=== PATIENT | male | born 1970 | race Caucasian/White ===

== ENCOUNTER 2017-08-13 18:01 | Emergency (ER) | payer OTHER, MEDICAID ==
[~2017-08-13] VITALS: Ht 180.3 cm; Wt 75.0 kg
[~2017-08-13 18:01] MED LIST: AMLO1TAB PO; CLOM50CA PO; DIAZ10TA PO; LINA145C PO; SERO200T PO; TRAZ300T2 PO
[2017-08-13 18:06] VITALS: BP 128/74; PULSE 93; RESP 20; TEMP 98.7; O2SAT 97
[2017-08-13 18:10] VITALS: O2SAT 98
[2017-08-13] MEDS ORDERED: SODIUM CHLOR 0.9% 1000 ML INJ 1,000 ML IV SCH (18:12)
[2017-08-13] MEDS ORDERED: MORPHINE SULFATE 4 MG/ML INJ IV PUSH ONE ×2 (18:15→18:45)
[2017-08-13] MEDS ORDERED: ONDANSETRON HCL 4 MG/2 ML VIAL IV PUSH ONE (18:15)
[2017-08-13] MEDS ORDERED: SODIUM CHLORIDE 0.9% FLUSH 10 ML FLUSH IVF PRN (18:15)
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
[2017-08-13] MEDS ORDERED: ALPR.5 PO (18:29)
[2017-08-13] MEDS ORDERED: DIAZ2 PO (18:29)
[2017-08-13 18:48] LABS: AUTOMATED NEUTROPHIL # 3.8 TH/MM3 (1.8-7.7); BASOPHIL % 0.6 % (0.0-2.0); EOSINOPHIL # 0.1 TH/MM3 (0-0.4); EOSINOPHIL % 2.1 % (0.0-4.0); HEMATOCRIT 40.8 % (39.0-51.0); HEMO FLAGS DIFF FINAL; LYMPH % 29.7 % (9.0-44.0); LYMPHOCYTE # 1.9 TH/MM3 (1.0-4.8); MEAN CELL VOLUME 91.7 FL (80.0-100.0); MEAN CORPUSCULAR HEMOGLOBIN 32.4 PG (27.0-34.0); MEAN CORPUSCULAR HGB CONC 35.4 % (32.0-36.0); MONO % 6.9 % (0.0-8.0); NEUT % 60.7 % (16.0-70.0); PLATELET COUNT 197 TH/MM3 (150-450); RED BLOOD COUNT 4.45 MIL/MM3 (4.50-5.90); RED CELL DISTRIBUTION WIDTH 12.7 % (11.6-17.2); WHITE BLOOD COUNT 6.3 TH/MM3 (4.0-11.0)
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
[2017-08-13 19:18] LABS: BICARBONATE 29.9 MEQ/L (21.0-32.0)
[2017-08-13] MEDS ORDERED: IOHEXOL 350 MG/ML 10 ML VIAL (for RAD DIAG) IVCONTRAST ONE (19:23)
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
[2017-08-13] MEDS ORDERED: KETOROLAC TROMETHAMINE 30 MG/ML (IVP) VIAL IV PUSH ONE (21:15)
[2017-08-13] MEDS ORDERED: PERC5TAB12 PO (21:21)
[2017-08-13] MEDS ORDERED: IBUP-232 PO (21:21)
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
[2017-08-13 21:26] VITALS: BP 139/92
== END 2017-08-13 22:00 | disposition home or self-care (01) ==
LOC: NEPE 18:01
DX: S40.012A Contusion of left shoulder, initial encounter (principal); S20.222A Contusion of left back wall of thorax, initial encounter; S10.93XA Contusion of unspecified part of neck, initial encounter; R55 Syncope and collapse; M41.9 Scoliosis, unspecified; M48.02 Spinal stenosis, cervical region; G10 Huntington's disease; J98.11 Atelectasis; V28.4XXA Motorcycle driver injured in noncollision transport accident in traffic accident, initial encounter
CPT/HCPCS: 70450; 71010; 71260; 72125; 72128; 72131; 74177; 80048; 85025; 86850; 86900; 86901; 96361; 96374; 96375; 99285; J1885; J2270; J2405; J7030; Q9967

== ENCOUNTER 2017-08-14 03:12 | Emergency (ER) | payer MEDICAID, OTHER ==
[~2017-08-14] VITALS: Ht 180.3 cm; Wt 87.4 kg
[~2017-08-14 03:12] MED LIST changes: +ALPR.5 PO; +DIAZ2 PO; +IBUP-232 PO; +PERC5TAB12 PO
[2017-08-14 03:16] VITALS: BP 121/77; PULSE 90; RESP 18; TEMP 97.4; O2SAT 99
[2017-08-14 03:22] VITALS: BP 121/77; PULSE 90; RESP 18; TEMP 97.4; O2SAT 99
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
[2017-08-14 03:48] LABS: BLOOD, URINE NEG (NEG); GLUCOSE,URINE NEG (NEG); KETONE, URINE NEG (NEG); NITRITE,URINE NEG (NEG)
[2017-08-14 03:58] LABS: URINE COLOR YELLOW (YELLW/STRAW)
[2017-08-14 03:59] LABS: COMMENT (UR) CULT NOT INDICATED; CULTURE IF INDICATED CULT NOT INDICATED; RBC, URINE 0-2 /hpf (0-3); SQUAMOUS EPITHELIAL CELL URINE 0-5 /hpf (0-5); WBC, URINE 0-2 /hpf (0-5)
[2017-08-14 04:34] VITALS: BP 145/86; PULSE 75; RESP 18; O2SAT 98
== END 2017-08-14 04:30 | disposition home or self-care (01) ==
LOC: PHED 03:12
DX: R33.9 Retention of urine, unspecified (principal); S30.812D Abrasion of penis, subsequent encounter; I10 Essential (primary) hypertension; F41.8 Other specified anxiety disorders; Z87.438 Personal history of other diseases of male genital organs; Z87.39 Personal history of other diseases of the musculoskeletal system and connective tissue; Z86.69 Personal history of other diseases of the nervous system and sense organs; Z87.2 Personal history of diseases of the skin and subcutaneous tissue; V29.60 Unspecified motorcycle rider injured in collision with unspecified motor vehicles in traffic accident
CPT/HCPCS: 51702; 81001

== ENCOUNTER 2017-08-23 09:35 | Inpatient (IN) | payer OTHER, MEDICARE ==
[~2017-08-23] VITALS: Ht 180.3 cm; Wt 80.9 kg
[2017-08-23] VITALS (8 sets, daily range): BP systolic 119–159; BP diastolic 62–78; PULSE 91–124; RESP 14–20; TEMP 98.6–102.3; O2SAT 95–99
[2017-08-23] MEDS ORDERED: VANCOMYCIN INJ 1,200 MG in SODIUM CHLOR 0.9% 250 ML INJ 250 ML IV STA (09:59)
[2017-08-23] MEDS ORDERED: PIPERACIL-TAZO 4.5 GM PREMIX 100 ML IV STA (09:59)
[2017-08-23] MEDS ORDERED: ONDANSETRON HCL 4 MG/2 ML VIAL IV PUSH ONE (10:00)
[2017-08-23] MEDS ORDERED: SODIUM CHLOR 0.9% 1000 ML INJ 1,000 ML IV ONE ×2 (10:00→11:00)
[2017-08-23] MEDS ORDERED: HYDROmorphone HCL PF 2 MG/ML VIAL IV PUSH ONE ×2 (10:00→12:00)
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
[2017-08-23 10:40] LABS: AUTOMATED NEUTROPHIL # 18.8 TH/MM3 (1.8-7.7); BASOPHIL % 0.2 % (0.0-2.0); EOSINOPHIL # 0.1 TH/MM3 (0-0.4); EOSINOPHIL % 0.3 % (0.0-4.0); HEMATOCRIT 39.8 % (39.0-51.0); LYMPH % 3.4 % (9.0-44.0); LYMPHOCYTE # 0.7 TH/MM3 (1.0-4.8); MEAN CORPUSCULAR HGB CONC 34.8 % (32.0-36.0); MONO % 5.1 % (0.0-8.0); PLATELET COUNT 229 TH/MM3 (150-450); RED BLOOD COUNT 4.47 MIL/MM3 (4.50-5.90); RED CELL DISTRIBUTION WIDTH 12.1 % (11.6-17.2); WHITE BLOOD COUNT 20.7 TH/MM3 (4.0-11.0)
[2017-08-23 10:47] LABS: CHLORIDE 103 MEQ/L (98-107); POTASSIUM 4.2 MEQ/L (3.5-5.1); SODIUM (NA) 139 MEQ/L (136-145)
[2017-08-23 10:51] LABS: ANION GAP 8 MEQ/L (5-15); BICARBONATE 28.4 MEQ/L (21.0-32.0)
[2017-08-23 10:52] LABS: BLOOD UREA NITROGEN 13 MG/DL (7-18)
[2017-08-23 10:54] LABS: ALT (GPT) 83 U/L (12-78); AST (GOT) 44 U/L (15-37); GLOMERULAR FILTRATION RATE 84 ML/MIN (>89); HEMO FLAGS DIFF FINAL
[2017-08-23 10:56] LABS: TOTAL BILIRUBIN ADULT 0.5 MG/DL (0.2-1.0)
[2017-08-23 10:57] LABS: ALKALINE PHOSPHATASE 76 U/L (45-117)
[2017-08-23 11:22] LABS: BLOOD, URINE LARGE (NEG); GLUCOSE,URINE NEG (NEG); KETONE, URINE NEG (NEG); NITRITE,URINE NEG (NEG); PH, URINE 5.5 (5.0-8.5)
--- NOTE | 2017-08-23 11:26 | RADRPT ---
EXAM DATE/TIME: 08/23/2017 10:27 [place] COMPARISON: No previous studies available for comparison. INDICATIONS : Left testicle swelling and pain. MEDICAL HISTORY : Hypertension. Jaiden's chorea. diabetes. SURGICAL HISTORY : Appendectomy. Ulnar nerve transposition. Right ankle surgery. TURP. ENCOUNTER: Initial ACUITY: 1 day PAIN SCORE: 5/10 LOCATION: Bilateral scrotum. MEASUREMENTS: RIGHT TESTICLE: 4.7 x 3.7 x 2.3cm LEFT TESTICLE: 4.2 x 3.5 x 2.8cm FINDINGS: RIGHT TESTICLE: Homogeneous echotexture without intra or extratesticular mass. Blood flow is symmetric and within no rmal limits. No hydrocele or varicocele. Epididymis is within normal limits. LEFT TESTICLE: Symmetrical flow in left testicle. Left epididymis is prominent and hypervascular. Small varicocele is noted. SCROTUM: Within normal limits. CONCLUSION: Probable epididymitis. Symmetrical flow no hydrocele. Small varicocele on left. Luc Fraga MD FACR on August 23, 2017 at 11:23 Board Certified Radiologist. This report was verified electronically.
[2017-08-23 11:33] LABS: URINE COLOR STRAW (YELLW/STRAW)
[2017-08-23 11:35] LABS: BACTERIA, URINE OCC /hpf; COMMENT (UR) CULTURE INDICATED; CULTURE IF INDICATED CULTURE INDICATED; METHOD OF COLLECTION CATH; SQUAMOUS EPITHELIAL CELL URINE 0-1 /hpf (0-5)
[2017-08-23] MEDS ORDERED: VANCOMYCIN INJ 1,200 MG in SODIUM CHLOR 0.9% 250 ML INJ 250 ML IV ONE (12:00)
[2017-08-23] MEDS ORDERED: DEXTROSE 50% IN WATER 50 ML VIAL(D50) IV PUSH PRN (12:15)
[2017-08-23] MEDS ORDERED: GLUCAGON 1 MG/ML VIAL OTHER PRN (12:15)
[2017-08-23] MEDS ORDERED: SODIUM CHLORIDE 0.9% FLUSH 10 ML FLUSH IV FLUSH PRN (12:15)
[2017-08-23] MEDS ORDERED: NALOXONE HCL 0.4 MG/ML AMP IV PUSH PRN (12:15)
[2017-08-23] MEDS ORDERED: MIDAZOLAM HCL 5 MG/5 ML VIAL IV PUSH ONE (12:15)
[2017-08-23] MEDS: SODIUM CHLOR 0.9% 1000 ML INJ 1,000 ML IV SCH ×2 (15:07→23:34)
--- NOTE | 2017-08-23 15:30 | HHI.HP ---
HPI Service [facility] Primary Care Physician Simón Valle MD Admission Diagnosis UTI, EPIDIDYMITIS Diagnoses: (1) Urinary retention (2) Epididymitis Chief Complaint: Left flank pain and left left testicular pain/swelling Travel History International Travel<30 Days: No Contact w/Intl Traveler <30 Da: No Traveled to Known Affected Are: No Sepsis Criteria SIRS Criteria (2 or more): Heart rate over 90, WBC > 69254, < 4000 or > 10% bands Sepsis Criteria (SIRS+source): Infect source susp/known History of Present Illness Written by Heydi Anthony, acting as scribe for Dr. Garcia on 08/23/17 at 15:04. Mr. Dutton is a 47-year-old male patient with a known medical history of hypertension, depression, [place]'s disease and chronic urination problems who presented to the ED with complaints of left sided flank pain and left testicular pain and swelling. Patient states that last evening he suddenly noticed his left testicle swollen and reports subjective fever, chills and severe left flank pain. Patient did present to the hospital on 08/14/2017 for urinary retention and at the time needed to be straight catheterized. Patient states since that time he has been voiding normally with no issues up until last evening. Does admit to dysuria. He also has underwent a TURP in the past and was following with Dr. Keita but has not seen him for over a year. Denies any recent chest pain, headache, sore throat, shortness of breath, nausea, vomiting, diarrhea. Review of Systems Constitutional: COMPLAINS OF: Fever, Chills Eyes: DENIES: Blurred vision, Diplopia Ears, nose, mouth, throat: DENIES: Throat pain Respiratory: DENIES: Cough, Shortness of breath Gastrointestinal: DENIES: Abdominal pain Genitourinary: COMPLAINS OF: Testicular Pain, Testicular Swelling Musculoskeletal: DENIES: Joint pain Hematologic/lymphatic: DENIES: Bruising Psychiatric: DENIES: Anxiety Except as stated in HPI: all other systems reviewed are Neg Past Family Social History Past Medical History Anxiety Depression Hypertension Enlarged prostate Huntingtons disease Psoriasis Past Surgical History Appendectomy TRUP Left ulnar nerve transplant Reported Medications Reported Meds & Active Scripts Active Ibuprofen 600 Mg Tab 600 Mg PO Q6H PRN Reported Trazodone (Trazodone HCl) 300 Mg Tab 300 Mg PO HS Linzess (Linaclotide) 145 Mcg Cap 145 Mcg PO DAILY Seroquel (Quetiapine Fumarate) 200 Mg Tab 200 Mg PO DAILY Diazepam 10 Mg Tab 10 Mg PO TID Amlodipine-Atorvastatin 5-40 Mg Tab 1 Tab PO DAILY Clomipramine (Clomipramine HCl) 50 Mg Cap 200 Mg PO DAILY Allergies: Coded Allergies: No Known Allergies (Verified Allergy, Unknown, 08/13/17) Active Ordered Medications Current Medications Medications (Trade) Dose Ordered Sig/Vivi Route Start Time Stop Time Status Last Admin Sodium Chloride 1,000 ml @ 100 mls/hr Q10H IV 08/23/17 12:15 (NS Flush) 2 ml UNSCH PRN IV FLUSH 08/23/17 12:15 (NS Flush) 2 ml BID IV FLUSH 08/23/17 21:00 (Tylenol) 650 mg Q4HR PRN PO 08/23/17 12:30 (Zofran Inj) 4 mg Q6H PRN IVP 08/23/17 16:00 (Narcan Inj) 0.4 mg UNSCH PRN IV PUSH 08/23/17 12:15 (Senokot) 17.2 mg Q12HR PRN PO 08/23/17 21:00 (D50w (Vial) Inj) 50 ml UNSCH PRN IV PUSH 08/23/17 12:15 (Glucagon Inj) 1 mg UNSCH PRN OTHER 08/23/17 12:15 (NovoLOG SUPPLEMENTAL SCALE) 1 ACHS SLIDING SCALE SQ 08/23/17 17:00 Family History Maternal medical history of Jaiden's disease Paternal medical history significant for lung CA. Social History Admits to smoking 1/2 ppd cigarettes per day for 34 years. Denies any alcohol use. Denies any illicit drug use. Physical Exam Vital Signs Vital Signs Date Time Temp Pulse Resp B/P (MAP) Pulse Ox O2 Delivery O2 Flow Rate FiO2 08/23/17 14:30 96 17 119/74 (89) 98 08/23/17 11:59 91 18 122/71 (88) 98 Room Air 08/23/17 11:18 17 08/23/17 10:50 100 18 121/71 (88) 99 Room Air 08/23/17 10:33 96 Room Air 08/23/17 10:33 Room Air 08/23/17 09:43 98.6 102 14 135/62 (86) 97 Room Air Physical Exam GENERAL: This is a well-nourished, well-developed patient, lying in bed with apparent pain and swelling in left testicle. SKIN: No rashes, ecchymoses or lesions. Warm and dry. HEENT: Atraumatic. Normocephalic. Pupils equal round and reactive. Extraocular motions intact. No scleral icterus. No injection or drainage. Nose without bleeding. Airway patent. NECK: Trachea midline. No JVD. Supple. CARDIOVASCULAR: Regular rate and rhythm without murmurs, gallops, or rubs. RESPIRATORY: Clear to auscultation. Breath sounds equal bilaterally. No wheezes , rales, or rhonchi. GASTROINTESTINAL: Abdomen soft, non-tender, nondistended. No guarding. : Left testicular swelling. Left flank pain. MUSCULOSKELETAL: Extremities without clubbing, cyanosis, or edema. No joint tenderness, effusion, or edema noted. NEUROLOGICAL: Awake and alert. Cranial nerves II through XII intact. Motor and sensory grossly within normal limits. Five out of 5 muscle strength in all muscle groups. Normal speech. Laboratory Laboratory Tests Test 08/23/17 10:10 08/23/17 10:50 White Blood Count 20.7 Red Blood Count 4.47 Hemoglobin 13.9 Hematocrit 39.8 Mean Corpuscular Volume 89.0 Mean Corpuscular Hemoglobin 31.0 Mean Corpuscular Hemoglobin Concent 34.8 Red Cell Distribution Width 12.1 Platelet Count 229 Mean Platelet Volume 7.7 Neutrophils (%) (Auto) 91.0 Lymphocytes (%) (Auto) 3.4 Monocytes (%) (Auto) 5.1 Eosinophils (%) (Auto) 0.3 Basophils (%) (Auto) 0.2 Neutrophils # (Auto) 18.8 Lymphocytes # (Auto) 0.7 Monocytes # (Auto) 1.1 Eosinophils # (Auto) 0.1 Basophils # (Auto) 0.0 CBC Comment DIFF FINAL Differential Comment Blood Urea Nitrogen 13 Creatinine 0.96 Random Glucose 106 Total Protein 7.1 Albumin 3.5 Calcium Level 8.5 Alkaline Phosphatase 76 Aspartate Amino Transf (AST/SGOT) 44 Alanine Aminotransferase (ALT/SGPT) 83 Total Bilirubin 0.5 Sodium Level 139 Potassium Level 4.2 Chloride Level 103 Carbon Dioxide Level 28.4 Anion Gap 8 Estimat Glomerular Filtration Rate 84 Lactic Acid Level 1.0 Urine Collection Type CATH Urine Color STRAW Urine Turbidity CLEAR Urine pH 5.5 Urine Specific [place] 1.005 Urine Protein NEG Urine Glucose (UA) NEG Urine Ketones NEG Urine Occult Blood LARGE Urine Nitrite NEG Urine Bilirubin NEG Urine Leukocyte Esterase SMALL Urine WBC 6-8 Urine WBC Clumps FEW Urine Squamous Epithelial Cells 0-1 Urine Bacteria OCC Microscopic Urinalysis Comment CULTURE INDICATED Date/Time Source Procedure Growth Status 08/23/17 10:05 Blood Peripheral Aerobic Blood Culture Pending Received 08/23/17 10:05 Blood Peripheral Anaerobic Blood Culture Pending Received 08/23/17 10:50 Urine Catheterized Urine Urine Culture Pending Received Result Diagram: 08/23/17 1010 08/23/17 1010 Imaging Last Impressions Scrotum Ultrasound 08/23/17 1004 Signed Impressions: Service Date/Time: Wednesday, August 23, 2017 10:27 - CONCLUSION: Probable epididymitis. Symmetrical flow no hydrocele. Small varicocele on left. Luc Fraga MD FACR Septic Shock Reassessment Septic shock perfusion: reassessment completed Caprini VTE Risk Assessment Caprini VTE Risk Assessment: No/Low Risk (score <= 1) Caprini Risk Assessment Model Point Value = 1 Point Value = 2 Point Value = 3 Point Value = 5 Age 41-60 Minor surgery BMI > 25 kg/m2 Swollen legs Varicose veins or History of unexplained or recurrent spontaneous Oral contraceptives or hormone replacement Sepsis (< 1 month) Serious lung disease, including pneumonia (< 1 month) Abnormal pulmonary function Acute myocardial infarction Congestive heart failure (< 1 month) History of inflammatory bowel disease Medical patient at bed rest Age 61-74 Arthroscopic surgery Major open surgery (> 45 min) Laparoscopic surgery (> 45 min) Malignancy Confined to bed (> 72 hours) Immobilizing plaster cast Central venous access Age >= 75 History of VTE Family history of VTE Factor V Leiden Prothrombin [id number] Lupus anticoagulant Anticardiolipin antibodies Elevated serum homocysteine Heparin-induced thrombocytopenia Other congenital or acquired thrombophilia Stroke (< 1 month) Elective arthroplasty Hip, pelvis, or leg fracture Acute spinal cord injury (< 1 month) Prophylaxis Regimen Total Risk Factor Score Risk Level Prophylaxis Regimen 0-1 Low Early ambulation 2 Moderate Order ONE of the following: *Sequential Compression Device (SCD) *Heparin 5000 units SQ BID 3-4 Higher Order ONE of the following medications: *Heparin 5000 units SQ TID *Enoxaparin/Lovenox 40 mg SQ daily (WT < 150 kg, CrCl > 30 mL/min) *Enoxaparin/Lovenox 30 mg SQ daily (WT < 150 kg, CrCl > 10-29 mL/min) *Enoxaparin/Lovenox 30 mg SQ BID (WT < 150 kg, CrCl > 30 mL/min) AND/OR *Sequential Compression Device (SCD) 5 or more Highest Order ONE of the following medications: *Heparin 5000 units SQ TID (Preferred with Epidurals) *Enoxaparin/Lovenox 40 mg SQ daily (WT < 150 kg, CrCl > 30 mL/min) *Enoxaparin/Lovenox 30 mg SQ daily (WT < 150 kg, CrCl > 10-29 mL/min) *Enoxaparin/Lovenox 30 mg SQ BID (WT < 150 kg, CrCl > 30 mL/min) AND *Sequential Compression Device (SCD) Assessment and Plan Problem List: (1) Sepsis ICD Code: A41.9 - Sepsis, unspecified organism Plan: Suspect secondary to UTI with presence of epididymitis. Meets sepsis criteria with leukocytosis with bandemia, tachycardia source urine. Lactic acid 1.1. Ua reviewed showing presence of WBC. Await culture. Started on Rocephin IV. Consult placed to urology, appreciate further recommendations and treatment. Supportive care. Control pain with IV narcotics. DVT Prophylaxis: SCDs. Physician Certification 2 Midnight Certification Type: Admission for Inpatient Services Order for Inpatient Services The services are ordered in accordance with Medicare regulations or non- Medicare payer requirements, as applicable. In the case of services not specified as inpatient-only, they are appropriately provided as inpatient services in accordance with the 2-midnight benchmark. Estimated LOS (days): 3 3 days is the estimated time the patient will need to remain in the hospital, assuming treatment plan goals are met and no additional complications. Post-Hospital Plan: Home Medical Decision Making Impression and Plan This note was transcribed by scribnorah [[email or web address]]. I, Dr. Ca Garcia personally performed the history, physical exam, and medical decision making; and confirmed the accuracy of the information in the transcribed note. seen in room, complains of pain; request pain meds; needs younger for retention Authenticated by Dr. Ca Garcia on 08/23/17 at 15:36. Heydi Anthony Aug 23, 2017 15:30 Ca Garcia MD Aug 23, 2017 15:38
[2017-08-23] MEDS ORDERED: cefTRIAXone INJ 1,000 MG in SODIUM CHLORIDE 0.9% INJ 100 ML IV SCH (15:45)
[2017-08-23] MEDS ORDERED: ONDANSETRON HCL 4 MG/2 ML VIAL IVP PRN (16:00)
[2017-08-23] MEDS: HYDROmorphone HCL PF 2 MG/ML VIAL IV PUSH PRN ×2 (16:05→20:19)
[2017-08-23] MEDS: cefTRIAXone INJ 1,000 MG in SODIUM CHLORIDE 0.9% INJ 100 ML IV SCH (16:05)
[2017-08-23] MEDS: TAMSULOSIN HCL 0.4 MG CAP PO SCH (16:51)
[2017-08-23] MEDS: ACETAMINOPHEN 325 MG TAB PO PRN ×2 (16:51→20:19)
[2017-08-23] MEDS ORDERED: INSULIN ASPART SUPPLEMENTAL SCALE SQ SCH (17:00)
[2017-08-23] MEDS: IBUPROFEN 400 MG TAB PO SCH ×2 (17:42→23:35)
[2017-08-23] MEDS: KETOROLAC TROMETHAMINE 30 MG/ML (IVP) VIAL IV PUSH SCH ×2 (17:42→23:34)
--- NOTE | 2017-08-23 19:59 | PD.CONS ---
[facility] Service Urology Consult Requested By Primary Care Physician Simón Valle MD Diagnosis: (1) Sepsis ICD Code: A41.9 - Sepsis, unspecified organism Past Family Social History Allergies: Coded Allergies: No Known Allergies (Verified Allergy, Unknown, 08/13/17) Physical Exam Vital Signs Date Time Temp Pulse Resp B/P (MAP) Pulse Ox O2 Delivery O2 Flow Rate FiO2 08/23/17 18:12 100.4 08/23/17 18:10 102.3 124 16 159/78 (105) 95 08/23/17 17:23 Nasal Cannula 2.00 08/23/17 14:30 96 17 119/74 (89) 98 08/23/17 12:29 18 08/23/17 11:59 91 18 122/71 (88) 98 Room Air 08/23/17 11:18 17 08/23/17 10:50 100 18 121/71 (88) 99 Room Air 08/23/17 10:33 96 Room Air 08/23/17 10:33 Room Air 08/23/17 09:43 98.6 102 14 135/62 (86) 97 Room Air Physical Exam GENERAL: This is a well-nourished, well-developed patient, in no apparent distress. SKIN: No rashes, ecchymoses or lesions. Cool and dry. HEAD: Atraumatic. Normocephalic. No temporal or scalp tenderness. EYES: Pupils equal round and reactive. Extraocular motions intact. No scleral icterus. No injection or drainage. ENT: Nose without bleeding, purulent drainage or septal hematoma. Throat without erythema, tonsillar hypertrophy or exudate. Uvula midline. Airway patent. NECK: Trachea midline. No JVD or lymphadenopathy. Supple, nontender, no meningeal signs. CARDIOVASCULAR: Regular rate and rhythm without murmurs, gallops, or rubs. RESPIRATORY: Clear to auscultation. Breath sounds equal bilaterally. No wheezes , rales, or rhonchi. GASTROINTESTINAL: Abdomen soft, non-tender, nondistended. No hepato-splenomegaly , or palpable masses. No guarding. GENITOURINARY: MUSCULOSKELETAL: Extremities without clubbing, cyanosis, or edema. No joint tenderness, effusion, or edema noted. No calf tenderness. Negative Homans sign bilaterally. NEUROLOGICAL: Awake and alert. Cranial nerves II through XII intact. Motor and sensory grossly within normal limits. Five out of 5 muscle strength in all muscle groups. Normal speech. Laboratory Tests Test 08/23/17 10:10 08/23/17 10:50 White Blood Count 20.7 Red Blood Count 4.47 Hemoglobin 13.9 Hematocrit 39.8 Mean Corpuscular Volume 89.0 Mean Corpuscular Hemoglobin 31.0 Mean Corpuscular Hemoglobin Concent 34.8 Red Cell Distribution Width 12.1 Platelet Count 229 Mean Platelet Volume 7.7 Neutrophils (%) (Auto) 91.0 Lymphocytes (%) (Auto) 3.4 Monocytes (%) (Auto) 5.1 Eosinophils (%) (Auto) 0.3 Basophils (%) (Auto) 0.2 Neutrophils # (Auto) 18.8 Lymphocytes # (Auto) 0.7 Monocytes # (Auto) 1.1 Eosinophils # (Auto) 0.1 Basophils # (Auto) 0.0 CBC Comment DIFF FINAL Differential Comment Blood Urea Nitrogen 13 Creatinine 0.96 Random Glucose 106 Total Protein 7.1 Albumin 3.5 Calcium Level 8.5 Alkaline Phosphatase 76 Aspartate Amino Transf (AST/SGOT) 44 Alanine Aminotransferase (ALT/SGPT) 83 Total Bilirubin 0.5 Sodium Level 139 Potassium Level 4.2 Chloride Level 103 Carbon Dioxide Level 28.4 Anion Gap 8 Estimat Glomerular Filtration Rate 84 Lactic Acid Level 1.0 Urine Collection Type CATH Urine Color STRAW Urine Turbidity CLEAR Urine pH 5.5 Urine Specific [place] 1.005 Urine Protein NEG Urine Glucose (UA) NEG Urine Ketones NEG Urine Occult Blood LARGE Urine Nitrite NEG Urine Bilirubin NEG Urine Leukocyte Esterase SMALL Urine WBC 6-8 Urine WBC Clumps FEW Urine Squamous Epithelial Cells 0-1 Urine Bacteria OCC Microscopic Urinalysis Comment CULTURE INDICATED Date/Time Source Procedure Growth Status 08/23/17 10:05 Blood Peripheral Aerobic Blood Culture Pending Received 08/23/17 10:05 Blood Peripheral Anaerobic Blood Culture Pending Received 08/23/17 10:50 Urine Catheterized Urine Urine Culture Pending Received Result Diagram: 08/23/17 1010 08/23/17 1010 Imaging Last Impressions Scrotum Ultrasound 08/23/17 1004 Signed Impressions: Service Date/Time: Wednesday, August 23, 2017 10:27 - CONCLUSION: Probable epididymitis. Symmetrical flow no hydrocele. Small varicocele on left. Luc Fraga MD FACR Assessment and Plan Problem List: (1) Urinary retention ICD Code: R33.9 - Retention of urine, unspecified (2) Epididymitis ICD Code: N45.1 - Epididymitis Status: Acute Assessment and Plan 1. Check Bladder Scan. If >300ml, insert younger catheter. Then, would leave in place x 1 week. 2. Start Flomax 0.4 mg daily. 3. Agree with Rocephin. Await urine culture. 4. IF symptoms do not improve over next 48 hours, would repeat scrotal u/s to r/ o abscess. 5. F/U as outpatient. Chase Keita MD Aug 23, 2017 19:59
[2017-08-23] MEDS: SODIUM CHLORIDE 0.9% FLUSH 10 ML FLUSH IV FLUSH SCH (20:20)
[2017-08-24] VITALS (7 sets, daily range): BP systolic 130–175; BP diastolic 72–96; PULSE 90–107; RESP 16–20; TEMP 96.4–100.3; O2SAT 95–100
[2017-08-24] MEDS: HYDROmorphone HCL PF 2 MG/ML VIAL IV PUSH PRN ×6 (00:29→22:46)
[2017-08-24] MEDS: ACETAMINOPHEN/HYDROcodone 325 MG/7.5 MG TAB PO PRN ×3 (06:26→16:08)
[2017-08-24] MEDS: IBUPROFEN 400 MG TAB PO SCH (06:26)
[2017-08-24] MEDS: KETOROLAC TROMETHAMINE 30 MG/ML (IVP) VIAL IV PUSH SCH ×3 (06:27→17:33)
[2017-08-24 06:29] LABS: AUTOMATED NEUTROPHIL # 15.1 TH/MM3 (1.8-7.7); BASOPHIL % 0.2 % (0.0-2.0); EOSINOPHIL # 0.1 TH/MM3 (0-0.4); EOSINOPHIL % 0.9 % (0.0-4.0); HEMATOCRIT 37.3 % (39.0-51.0); LYMPH % 3.4 % (9.0-44.0); LYMPHOCYTE # 0.5 TH/MM3 (1.0-4.8); MEAN CELL VOLUME 91.2 FL (80.0-100.0); MEAN CORPUSCULAR HEMOGLOBIN 30.4 PG (27.0-34.0); MEAN CORPUSCULAR HGB CONC 33.3 % (32.0-36.0); MONO % 3.4 % (0.0-8.0); NEUT % 92.1 % (16.0-70.0); PLATELET COUNT 189 TH/MM3 (150-450); RED BLOOD COUNT 4.09 MIL/MM3 (4.50-5.90); RED CELL DISTRIBUTION WIDTH 12.5 % (11.6-17.2); WHITE BLOOD COUNT 16.2 TH/MM3 (4.0-11.0)
[2017-08-24 06:36] LABS: HEMO FLAGS DIFF FINAL
[2017-08-24 06:37] LABS: BICARBONATE 31.4 MEQ/L (21.0-32.0)
[2017-08-24] MEDS: TAMSULOSIN HCL 0.4 MG CAP PO SCH (08:25)
[2017-08-24] MEDS: SODIUM CHLORIDE 0.9% FLUSH 10 ML FLUSH IV FLUSH SCH ×2 (08:26→21:00)
[2017-08-24] MEDS: SODIUM CHLOR 0.9% 1000 ML INJ 1,000 ML IV SCH ×2 (08:26→17:35)
[2017-08-24] MEDS ORDERED: INFLUENZA VIRUS VACCINE (QUADRIVALENT) 0.5 ML SYR IM ONE (10:00)
[2017-08-24] MEDS ORDERED: PNEUMOCOCCAL POLYVALENT INJ 25 MCG/0.5 ML SYR IM ONE (10:00)
--- NOTE | 2017-08-24 13:16 | HHI.PR ---
Subjective Remarks Patient seen and examined today for follow-up on sepsis secondary to epididymitis. Patient still low-grade fever, tachycardia, leukocytosis. Patient complaining of continued pain. However patient is on multiple medications to include Toradol, Thomas 7.5, and Dilaudid 2 mg every 4 hours. Patient not indicate that he is been doing any scrotal elevation or icing. Objective Vital Signs Date Time Temp Pulse Resp B/P (MAP) Pulse Ox O2 Delivery O2 Flow Rate FiO2 08/24/17 09:27 96.7 90 16 130/72 (91) 98 08/24/17 08:30 Nasal Cannula 2.00 21 08/24/17 08:29 97 21 08/24/17 00:00 100.3 107 20 135/76 (95) 98 08/23/17 20:00 100.4 107 20 132/77 (95) 96 08/23/17 19:40 96 Nasal Cannula 1.00 08/23/17 19:00 96 Nasal Cannula 2.00 08/23/17 18:12 100.4 08/23/17 18:10 102.3 124 16 159/78 (105) 95 08/23/17 17:23 Nasal Cannula 2.00 08/23/17 14:30 96 17 119/74 (89) 98 I/O 08/23/17 08/23/17 08/23/17 08/24/17 08/24/17 08/24/17 07:00 15:00 23:00 07:00 15:00 23:00 Intake Total 2350 ml 400 ml 1920 ml Output Total 500 ml 1875 ml 3850 ml Balance 1850 ml -1475 ml -1930 ml Intake Oral 1920 ml IV Total 2350 ml 400 ml Output Urine Total 500 ml 1875 ml 3850 ml Result Diagram: 08/24/17 0520 08/24/17 0520 Imaging Last Impressions Scrotum Ultrasound 08/23/17 1004 Signed Impressions: Service Date/Time: Wednesday, August 23, 2017 10:27 - CONCLUSION: Probable epididymitis. Symmetrical flow no hydrocele. Small varicocele on left. Luc Fraga MD FACR Objective Remarks GENERAL: Well-developed, well-nourished, in no acute distress. alert and orientated HEENT: Head is normocephalic without any lesions or masses noted. Facial features are symmetric. Eyes: Extraocular muscles are intact. Conjunctivae were clear. NECK: Supple without any masses. Trachea midline no deviation. No JVD, CARDIAC: Regular rhythm, regular rate. S1/S2 are heard. No murmurs gallops or rubs. LUNGS: Clear to auscultation bilaterally. No wheeze, rhonchi or rales. No use of accessory muscles on inspiration or expiration. ABDOMEN: Soft, nontender. Nondistended. Bowel sounds heard in all 4 quadrants. No organomegaly or masses. Negative rebound, negative guarding EXTREMITIES: No edema, pulses are equal bilaterally. No cyanosis or clubbing NEUROLOGY: Mood and affect appear appropriate. Cranial nerves II through XII grossly intact. Moving all extremities, speech is clear A/P Assessment and Plan Sepsis Patient presented with febrile illness, leukocytosis, tachycardia, imaging studies indicating possible epididymitis, urinary tract infection Patient started on empirical antibiotics include Rocephin Patient now with blood cultures showing gram-positive cocci Urine culture is pending Positive blood cultures 2/4 gram-positive cocci Continue Rocephin Repeat blood cultures Epididymitis, scrotal pain Continue Rocephin, start Levaquin 500 mg twice daily Await urine culture Check GC/chlamydia culture, however likely be negative secondary to previous antibiotics given Scrotal elevation and ice Pain control, patient requiring increased amounts of medication Toradol 30 mg IV every 6 hours Thomas 7.5 every 6 hours for pain 1-5 Start Thomas 10 every 6 hours for pain 6-10 Change to Dilaudid 2 mg every 4 hours for breakthrough pain Urology consulted who indicated continued Kuhn for 1 week, start Flomax if patient doesn't improve over the next 48 hours, plan on repeating scrotal ultrasound to rule out abscess Bipolar disorder, anxiety, depression Continue home medications DVT prevention Sequential compression devices Mohit Chaves Aug 24, 2017 13:16
[2017-08-24] MEDS: DIAZEPAM 10 MG TAB PO SCH ×2 (13:28→17:31)
[2017-08-24] MEDS: LEVOFLOXACIN 500 MG TAB PO SCH (13:28)
[2017-08-24] MEDS: cefTRIAXone INJ 1,000 MG in SODIUM CHLORIDE 0.9% INJ 100 ML IV SCH (15:59)
[2017-08-24 20:29] LABS: CHLAMYDIA PCR NOT DETECTED (NOT DETECT); NEISSERIA PCR NOT DETECTED (NOT DETECT)
[2017-08-24] MEDS: traZODone HCL 100 MG TAB PO SCH (22:48)
[2017-08-25] VITALS (7 sets, daily range): BP systolic 109–157; BP diastolic 61–77; PULSE 85–120; RESP 20; TEMP 97.9–100.9; O2SAT 94–97
[2017-08-25] MEDS: KETOROLAC TROMETHAMINE 30 MG/ML (IVP) VIAL IV PUSH SCH ×5 (00:25→23:41)
[2017-08-25] MEDS: SODIUM CHLOR 0.9% 1000 ML INJ 1,000 ML IV SCH ×2 (03:45→14:10)
[2017-08-25] MEDS: ACETAMINOPHEN/HYDROcodone 325 MG/7.5 MG TAB PO PRN (05:52)
[2017-08-25 06:34] LABS: POTASSIUM 3.6 MEQ/L (3.5-5.1)
[2017-08-25 06:38] LABS: BICARBONATE 26.5 MEQ/L (21.0-32.0); MAGNESIUM 1.9 MG/DL (1.5-2.5)
[2017-08-25 06:43] LABS: AUTOMATED NEUTROPHIL # 13.1 TH/MM3 (1.8-7.7); BASOPHIL % 0.1 % (0.0-2.0); EOSINOPHIL # 0.1 TH/MM3 (0-0.4); EOSINOPHIL % 0.8 % (0.0-4.0); HEMATOCRIT 35.2 % (39.0-51.0); LYMPH % 2.6 % (9.0-44.0); LYMPHOCYTE # 0.4 TH/MM3 (1.0-4.8); MEAN CELL VOLUME 92.8 FL (80.0-100.0); MEAN CORPUSCULAR HEMOGLOBIN 30.4 PG (27.0-34.0); MEAN CORPUSCULAR HGB CONC 32.8 % (32.0-36.0); MONO % 4.1 % (0.0-8.0); NEUT % 92.4 % (16.0-70.0); PLATELET COUNT 169 TH/MM3 (150-450); RED BLOOD COUNT 3.79 MIL/MM3 (4.50-5.90); RED CELL DISTRIBUTION WIDTH 12.9 % (11.6-17.2); WHITE BLOOD COUNT 14.2 TH/MM3 (4.0-11.0)
[2017-08-25 06:57] LABS: HEMO FLAGS AUTO DIFF
[2017-08-25 07:46] LABS: SCAN/DIFF AUTO DIFF CONFIRMED
[2017-08-25] MEDS: DIAZEPAM 10 MG TAB PO SCH ×3 (08:32→17:26)
[2017-08-25] MEDS: TAMSULOSIN HCL 0.4 MG CAP PO SCH (08:33)
[2017-08-25] MEDS: ATORVASTATIN 40 MG TAB PO SCH (08:33)
[2017-08-25] MEDS: amLODIPine BESYLATE 5 MG TAB PO SCH (08:35)
[2017-08-25] MEDS: SODIUM CHLORIDE 0.9% FLUSH 10 ML FLUSH IV FLUSH SCH ×2 (08:36→22:24)
[2017-08-25] MEDS ORDERED: QUEtiapine FUMARATE 200 MG TAB PO SCH (09:00)
[2017-08-25] MEDS ORDERED: NON-FORMULARY DRUG (Amlodipine-Atorvastatin 1 TAB) PO SCH (09:00)
[2017-08-25] MEDS ORDERED: LINACLOTIDE 145 MCG PO SCH (09:00)
[2017-08-25] MEDS ORDERED: CLOMIPRAMINE PO SCH ×2 (09:00→21:00)
--- NOTE | 2017-08-25 10:19 | RADRPT ---
EXAM DATE/TIME: 08/25/2017 09:31 [place] COMPARISON: US TESTICLE W/DOPPLER, August 23, 2017, 10:27. INDICATIONS : Worsening left testicle pain and swelling. MEDICAL HISTORY : Hypertension. [place]'s chorea. diabetes. SURGICAL HISTORY : Appendectomy. Ulnar nerve transposition. Right ankle surgery. TURP. ENCOUNTER: Subsequent ACUITY: 2 days PAIN SCORE: 4/10 LOCATION: Bilateral scrotum. MEASUREMENTS: RIGHT TESTICLE: 4.7 x 4.1 x 2.9cm LEFT TESTICLE: 4.2 x 3.3 x 3.5cm FINDINGS: The vascularity and induration around the left epididymis has increased. The left testicle shows inc reased hyperemia but is normal. There is increasing left hemiscrotum edema with small hydrocele.. T here is septation in the hydrocele that is new. Right chest were unremarkable. CONCLUSION: Determination there is left testicle decreasing hyperemia and septation hydrocele. Abscess cannot be excluded within this hydrocele. I don't see testicular abscess. Luc Fraga MD FACR on August 25, 2017 at 10:14 Board Certified Radiologist. This report was verified electronically.
[2017-08-25] MEDS: LEVOFLOXACIN 500 MG TAB PO SCH (10:47)
[2017-08-25] MEDS: ACETAMINOPHEN/HYDROcodone 325 MG/10 MG TAB PO PRN ×3 (11:40→23:55)
[2017-08-25] MEDS ORDERED: Vancomycin Consult Pharmacy 1 EA OTHER SCH (13:15)
[2017-08-25] MEDS ORDERED: VANCOMYCIN INJ 1,000 MG in SODIUM CHLOR 0.9% 250 ML INJ 250 ML IV ONE (13:15)
--- NOTE | 2017-08-25 13:17 | HHI.PR ---
Subjective Remarks Patient seen and examined today for follow-up on sepsis secondary to epididymitis. Patient still with fever, tachycardia, leukocytosis. Indicating is no significant improvement in his testicle. We'll need to perform further studies. Objective Vital Signs Date Time Temp Pulse Resp B/P (MAP) Pulse Ox O2 Delivery O2 Flow Rate FiO2 08/25/17 11:50 98.2 85 20 109/61 (77) 97 08/25/17 08:00 Room Air 21 08/25/17 07:50 98.8 96 20 157/74 (101) 95 08/25/17 00:00 100.9 120 20 140/73 (95) 95 08/24/17 20:10 95 21 08/24/17 20:00 96.4 99 20 175/96 (122) 100 08/24/17 19:00 Room Air 08/24/17 18:40 97.1 95 16 150/78 (102) 99 08/24/17 14:48 98.4 95 18 140/77 (98) 95 I/O 08/24/17 08/24/17 08/24/17 08/25/17 08/25/17 08/25/17 07:00 15:00 23:00 07:00 15:00 23:00 Intake Total 1920 ml 3010 ml 1200 ml Output Total 3850 ml 7875 ml Balance -1930 ml -4865 ml 1200 ml Intake Oral 1920 ml 2000 ml 1200 ml IV Total 1010 ml Output Urine Total 3850 ml 7875 ml # Voids 1 # Bowel Movements 0 0 Result Diagram: 08/25/17 0606 08/25/17 0606 Imaging Last Impressions Scrotum Ultrasound 08/25/17 0000 Signed Impressions: Service Date/Time: Friday, August 25, 2017 09:31 - CONCLUSION: Determination there is left testicle decreasing hyperemia and septation hydrocele. Abscess cannot be excluded within this hydrocele. I don't see testicular abscess. Luc Fraga MD FACR Objective Remarks GENERAL: Well-developed, well-nourished, in no acute distress. alert and orientated HEENT: Head is normocephalic without any lesions or masses noted. Facial features are symmetric. Eyes: Extraocular muscles are intact. Conjunctivae were clear. NECK: Supple without any masses. Trachea midline no deviation. No JVD, CARDIAC: Regular rhythm, regular rate. S1/S2 are heard. No murmurs gallops or rubs. LUNGS: Clear to auscultation bilaterally. No wheeze, rhonchi or rales. No use of accessory muscles on inspiration or expiration. ABDOMEN: Soft, nontender. Nondistended. Bowel sounds heard in all 4 quadrants. No organomegaly or masses. Negative rebound, negative guarding EXTREMITIES: No edema, pulses are equal bilaterally. No cyanosis or clubbing NEUROLOGY: Mood and affect appear appropriate. Cranial nerves II through XII grossly intact. Moving all extremities, speech is clear A/P Assessment and Plan Sepsis Patient presented with febrile illness, leukocytosis, tachycardia, imaging studies indicating possible epididymitis, urinary tract infection, now with bacteremia Patient started on empirical antibiotics include Rocephin Patient now with blood cultures showing staph aureus Urine culture is negative for 48 hours Bacteremia 2/4 staph aureus Continue Rocephin Repeat blood cultures negative for 1 day Infectious disease consulted for recommendations Epididymitis, scrotal pain Discontinue Rocephin, Levaquin 500 mg twice daily Urine culture negative for 48 hours GC/chlamydia culture, negative Scrotal elevation and ice Pain control, patient requiring increased amounts of medication Toradol 30 mg IV every 6 hours [place] 7.5 every 6 hours for pain 1-5 [place] 10 every 6 hours for pain 6-10 Dilaudid 2 mg every 4 hours for breakthrough pain Urology consulted who indicated continued Kuhn for 1 week, start Flomax if patient doesn't improve over the next 48 hours, plan on repeating scrotal ultrasound to rule out abscess Repeat scrotal ultrasound indicates increased vascularity and induration around the left epididymis. Increased hyperemia. Increased left hemiscrotum edema with small hydrocele which is new. septation noted within the hydrocele which abscess cannot be excluded Discuss with urology who recommended discontinuing Rocephin and starting vancomycin and Zosyn, discussed with him possible need for surgical intervention , indicated trying antibiotics first Bipolar disorder, anxiety, depression Continue home medications DVT prevention Sequential compression devices Mohit Chaves Aug 25, 2017 13:17
[2017-08-25] MEDS: PIPERACILLIN/TAZ 3.375 GM VIAL 3.375 GM in SODIUM CHLORIDE 0.9% INJ 100 ML IV SCH ×2 (15:34→21:11)
--- NOTE | 2017-08-25 16:46 | HHI.PR ---
Subjective Patient symptoms today c/o left testicular pain, low grade fevers. Objective Vital Signs Vital Signs Date Time Temp Pulse Resp B/P (MAP) Pulse Ox O2 Delivery O2 Flow Rate FiO2 08/25/17 11:50 98.2 85 20 109/61 (77) 97 08/25/17 08:00 94 21 08/25/17 08:00 Room Air 21 08/25/17 07:50 98.8 96 20 157/74 (101) 95 08/25/17 00:00 100.9 120 20 140/73 (95) 95 08/24/17 20:10 95 21 08/24/17 20:00 96.4 99 20 175/96 (122) 100 08/24/17 19:00 Room Air 08/24/17 18:40 97.1 95 16 150/78 (102) 99 Intake & Output 08/25/17 08/25/17 07:00 19:00 Intake Total 1200 ml Output Total 1875 ml Balance -675 ml Intake Oral 1200 ml Output Urine Total 1875 ml # Voids 1 # Bowel Movements 0 Result Diagram: 08/25/17 0606 08/25/17 0606 Imaging Last 24 hours Impressions Scrotum Ultrasound 08/25/17 0000 Signed Impressions: Service Date/Time: Friday, August 25, 2017 09:31 - CONCLUSION: Determination there is left testicle decreasing hyperemia and septation hydrocele. Abscess cannot be excluded within this hydrocele. I don't see testicular abscess. Luc Fraga MD FACR Objective Remarks left hemiscrotum firm, indurated, tender Medications and IVs Current Medications Medications (Trade) Dose Ordered Sig/Vivi Route Start Time Stop Time Status Last Admin Sodium Chloride 1,000 ml @ 100 mls/hr Q10H IV 08/23/17 12:15 08/25/17 14:10 (NS Flush) 2 ml UNSCH PRN IV FLUSH 08/23/17 12:15 (NS Flush) 2 ml BID IV FLUSH 08/23/17 21:00 08/25/17 08:36 (Tylenol) 650 mg Q4HR PRN PO 08/23/17 12:30 08/23/17 20:19 (Zofran Inj) 4 mg Q6H PRN IVP 08/23/17 16:00 08/25/17 05:52 (Narcan Inj) 0.4 mg UNSCH PRN IV PUSH 08/23/17 12:15 (Senokot) 17.2 mg Q12HR PRN PO 08/23/17 21:00 (Dilaudid Pf Inj) 2 mg Q4H PRN IV PUSH 08/23/17 15:45 08/24/17 22:46 (Toradol Inj) 30 mg Q6HR IV PUSH 08/23/17 18:00 08/28/17 17:59 08/25/17 11:10 (Flomax) 0.4 mg DAILY PO 08/23/17 16:15 08/25/17 08:33 (Valium) 10 mg TID PO 08/24/17 13:00 08/25/17 12:30 (SEROquel) 200 mg DAILY PO 08/25/17 09:00 08/25/17 08:35 (Desyrel) 300 mg HS PO 08/24/17 21:00 08/24/17 22:48 Patient Own Medication PT OWN MED: (Clomipramine 200 MG) DAILY PO 08/25/17 09:00 Future Hold Patient Own Medication PT OWN MED: (Linaclotide (Linze... DAILY PO 08/25/17 09:00 Future Hold ([place] 7.5-325 Mg) 1 tab Q6HR PRN PO 08/24/17 13:15 08/25/17 05:52 ([place] 10-325 Mg) 1 tab Q6HR PRN PO 08/24/17 13:15 08/25/17 11:40 (Norvasc) 5 mg DAILY PO 08/25/17 09:00 08/25/17 08:35 (Lipitor) 40 mg DAILY PO 08/25/17 09:00 08/25/17 08:33 Pharmacy Profile Note 0 ml @ 0 mls/hr UNSCH OTHER 08/25/17 13:15 Piperacillin Sod/ Tazobactam Sod 3.375 gm/Sodium Chloride 100 ml @ 200 mls/hr Q6H IV 08/25/17 15:00 08/25/17 15:34 Vancomycin HCl 1000 mg/Sodium Chloride 250 ml @ 250 mls/hr Q8H IV 08/25/17 22:00 Miscellaneous Information SPECIFIC LAB TO BE DRAWN: D... ONCE ONCE .XX 08/26/17 13:45 08/26/17 13:46 Assessment and Plan Problem List: (1) Urinary retention ICD Code: R33.9 - Retention of urine, unspecified (2) Epididymitis ICD Code: N45.1 - Epididymitis Status: Acute Assessment and Plan -WBC down, still having low grade fevers. -Change to Vanco, Zosyn. Follow blood cultures. -toradol for pain -Flomax, younger catheter. -No surgical intervention needed at this time Chase Keita MD Aug 25, 2017 16:46
[2017-08-25] MEDS: LINACLOTIDE 145 MCG PO SCH (20:01)
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
[2017-08-25] MEDS: VANCOMYCIN 1,000 MG/NS 250 ML IV SCH ×2 (22:23)
[2017-08-25] MEDS: traZODone HCL 100 MG TAB PO SCH (23:34)
[2017-08-25] MEDS: SENNOSIDES 8.6 MG TAB PO PRN (23:35)
[2017-08-26] VITALS (7 sets, daily range): BP systolic 128–161; BP diastolic 78–93; PULSE 81–90; RESP 20; TEMP 96.3–99.8; O2SAT 94–98
[2017-08-26] MEDS: SODIUM CHLOR 0.9% 1000 ML INJ 1,000 ML IV SCH ×3 (02:58→15:50)
[2017-08-26] MEDS: PIPERACILLIN/TAZ 3.375 GM VIAL 3.375 GM in SODIUM CHLORIDE 0.9% INJ 100 ML IV SCH ×4 (03:02→23:31)
[2017-08-26] MEDS: VANCOMYCIN 1,000 MG/NS 250 ML IV SCH ×4 (05:16→15:15)
[2017-08-26 05:27] LABS: AUTOMATED NEUTROPHIL # 6.9 TH/MM3 (1.8-7.7); BASOPHIL % 0.4 % (0.0-2.0); EOSINOPHIL # 0.2 TH/MM3 (0-0.4); EOSINOPHIL % 2.4 % (0.0-4.0); HEMATOCRIT 34.2 % (39.0-51.0); LYMPH % 6.7 % (9.0-44.0); LYMPHOCYTE # 0.6 TH/MM3 (1.0-4.8); MEAN CELL VOLUME 90.1 FL (80.0-100.0); MEAN CORPUSCULAR HGB CONC 34.4 % (32.0-36.0); MONO % 7.5 % (0.0-8.0); PLATELET COUNT 198 TH/MM3 (150-450); RED CELL DISTRIBUTION WIDTH 12.7 % (11.6-17.2); WHITE BLOOD COUNT 8.3 TH/MM3 (4.0-11.0)
[2017-08-26 05:30] LABS: HEMO FLAGS DIFF FINAL
[2017-08-26] MEDS: KETOROLAC TROMETHAMINE 30 MG/ML (IVP) VIAL IV PUSH SCH ×3 (06:28→18:43)
[2017-08-26] MEDS: ACETAMINOPHEN/HYDROcodone 325 MG/10 MG TAB PO PRN ×2 (06:37→18:49)
[2017-08-26] MEDS: ATORVASTATIN 40 MG TAB PO SCH (08:59)
[2017-08-26] MEDS: TAMSULOSIN HCL 0.4 MG CAP PO SCH (08:59)
[2017-08-26] MEDS: amLODIPine BESYLATE 5 MG TAB PO SCH (08:59)
--- NOTE | 2017-08-26 08:59 | HHI.PR ---
Subjective Remarks Patient seen and examined today for follow-up on sepsis secondary to epididymitis. Patient clinically improving. No longer febrile. Leukocytosis has resolved. Patient states that the pain is improving. States that he has not noticed any significant change in the size and appearance of his scrotum Objective Vital Signs Date Time Temp Pulse Resp B/P (MAP) Pulse Ox O2 Delivery O2 Flow Rate FiO2 08/26/17 00:00 98.5 83 20 128/78 (95) 95 08/25/17 20:50 95 21 08/25/17 20:00 97.9 86 20 125/77 (93) 97 08/25/17 15:50 98.2 92 20 114/64 (81) 97 08/25/17 11:50 98.2 85 20 109/61 (77) 97 I/O 08/25/17 08/25/17 08/25/17 08/26/17 08/26/17 08/26/17 07:00 15:00 23:00 07:00 15:00 23:00 Intake Total 1200 ml 250 ml 670 ml 4460 ml Output Total 2750 ml 2650 ml Balance 1200 ml 250 ml -2080 ml 1810 ml Intake Oral 1200 ml 360 ml 960 ml IV Total 250 ml 310 ml 3500 ml Output Urine Total 2750 ml 2650 ml # Voids 1 # Bowel Movements 0 0 0 Result Diagram: 08/26/17 0515 08/25/17 0606 Objective Remarks GENERAL: Well-developed, well-nourished, in no acute distress. alert and orientated HEENT: Head is normocephalic without any lesions or masses noted. Facial features are symmetric. Eyes: Extraocular muscles are intact. Conjunctivae were clear. NECK: Supple without any masses. Trachea midline no deviation. No JVD, CARDIAC: Regular rhythm, regular rate. S1/S2 are heard. No murmurs gallops or rubs. LUNGS: Clear to auscultation bilaterally. No wheeze, rhonchi or rales. No use of accessory muscles on inspiration or expiration. ABDOMEN: Soft, nontender. Nondistended. Bowel sounds heard in all 4 quadrants. No organomegaly or masses. Negative rebound, negative guarding EXTREMITIES: No edema, pulses are equal bilaterally. No cyanosis or clubbing NEUROLOGY: Mood and affect appear appropriate. Cranial nerves II through XII grossly intact. Moving all extremities, speech is clear SCROTUM: Patient with significant erythema noted over the left testicle. There is significant granulation, with pain on palpation A/P Assessment and Plan Sepsis, resolved Patient presented with febrile illness, leukocytosis, tachycardia, imaging studies indicating possible epididymitis, urinary tract infection, bacteremia Discontinued Rocephin, started vancomycin and Zosyn Patient with positive blood cultures Urine culture is negative for 48 hours Bacteremia Currently on vancomycin and Zosyn Blood cultures 08/23/17 2/4 staph aureus 08/24/17 1/2 Gram-positive cocci 08/25/17 pending Infectious disease consulted for recommendations Awaiting echocardiogram to rule out endocarditis Epididymitis, scrotal pain Discontinue Rocephin, Levaquin 500 mg twice daily Urine culture negative for 48 hours GC/chlamydia culture, negative Scrotal elevation and ice Pain control, patient requiring increased amounts of medication Toradol 30 mg IV every 6 hours [place] 7.5 every 6 hours for pain 1-5 [place] 10 every 6 hours for pain 6-10 Dilaudid 2 mg every 4 hours for breakthrough pain Urology consulted who indicated continued [place] for 1 week, started Flomax if patient doesn't improve over the next 48 hours, plan on repeating scrotal ultrasound to rule out abscess 08/25/17 Repeat scrotal ultrasound indicates increased vascularity and induration around the left epididymis. Increased hyperemia. Increased left hemiscrotum edema with small hydrocele which is new. septation noted within the hydrocele which abscess cannot be excluded 08/25/17 Discuss with urology who recommended discontinuing Rocephin and starting vancomycin and Zosyn, discussed with him possible need for surgical intervention, indicated trying antibiotics first Bipolar disorder, anxiety, depression Continue home medications DVT prevention Sequential compression devices Mohit Chaves Aug 26, 2017 08:59
[2017-08-26] MEDS: LINACLOTIDE 145 MCG PO SCH (09:00)
[2017-08-26] MEDS: SODIUM CHLORIDE 0.9% FLUSH 10 ML FLUSH IV FLUSH SCH (09:00)
[2017-08-26] MEDS: DIAZEPAM 10 MG TAB PO SCH ×3 (09:02→18:03)
[2017-08-26] MEDS ORDERED: PHARMACY ORDERED LAB ONE (13:45)
[2017-08-26] MEDS: HYDROmorphone HCL PF 2 MG/ML VIAL IV PUSH PRN (14:21)
--- NOTE | 2017-08-26 15:55 | ECHRPT ---
Indication: vegetation CONCLUSIONS Limited study LVEF 60-65% Mild thickening of the mitral valve leaflets. Trace mitral valve regurgitation. There is mild tricuspid valve regurgitation. The estimated pulmonary arterial pressure is 45.3 mmHg. No evidence of endocarditis seen BP: 128 / 78 HR: 95 Rhythm: Sinus MEASUREMENTS (Male / Female) Normal Values Technical Quality:Good DOPPLER TR Peak Velocity 297.0 cm/s TR Peak Gradient 35.3 mmHg Right Atrial Pressure 10.0 mmHg Pulmonary Artery Systolic Pressu 45.3 mmHg Right Ventricular Systolic Press 45.3 mmHg FINDINGS LEFT VENTRICLE The left ventricular systolic function is normal with an estimated ejection fraction in the range of 60-65%. MITRAL VALVE Mild thickening of the mitral valve leaflets. Trace mitral valve regurgitation. AORTIC VALVE Trileaflet aortic valve. No aortic valve stenosis or regurgitation. TRICUSPID VALVE Structurally normal tricuspid valve. There is mild tricuspid valve regurgitation. The estimated pulmonary arterial pressure is 45.3 mmHg. Per Krueger MD (Electronically Signed) Final Date:26 August 2017 15:54
[2017-08-26] MEDS: VANCOMYCIN INJ 1,250 MG in SODIUM CHLOR 0.9% 250 ML INJ 250 ML IV SCH (20:46)
[2017-08-27] VITALS: BP 131/83; PULSE 86; RESP 20; TEMP 97; O2SAT 97
[2017-08-27] MEDS: SODIUM CHLORIDE 0.9% FLUSH 10 ML FLUSH IV FLUSH SCH ×3 (00:27→21:00)
[2017-08-27] MEDS: SENNOSIDES 8.6 MG TAB PO PRN (00:28)
[2017-08-27] MEDS: traZODone HCL 100 MG TAB PO SCH ×2 (00:28→23:58)
[2017-08-27] MEDS: QUEtiapine FUMARATE 100 MG TAB PO SCH ×2 (00:29→23:57)
[2017-08-27] MEDS: ACETAMINOPHEN/HYDROcodone 325 MG/10 MG TAB PO PRN ×5 (00:29→23:58)
[2017-08-27] MEDS: KETOROLAC TROMETHAMINE 30 MG/ML (IVP) VIAL IV PUSH SCH ×5 (00:30→23:57)
[2017-08-27] MEDS: CLOMIPRAMINE PO SCH ×3 (00:36→21:00)
[2017-08-27] MEDS: PIPERACILLIN/TAZ 3.375 GM VIAL 3.375 GM in SODIUM CHLORIDE 0.9% INJ 100 ML IV SCH (03:04)
[2017-08-27] MEDS: SODIUM CHLOR 0.9% 1000 ML INJ 1,000 ML IV SCH ×2 (04:47→16:32)
[2017-08-27] MEDS: VANCOMYCIN INJ 1,250 MG in SODIUM CHLOR 0.9% 250 ML INJ 250 ML IV SCH ×3 (04:47→20:45)
[2017-08-27 08:00] VITALS: BP 138/89; PULSE 87; RESP 16; TEMP 97.4; O2SAT 96
[2017-08-27] MEDS: LINACLOTIDE 145 MCG PO SCH (09:00)
[2017-08-27] MEDS: ATORVASTATIN 40 MG TAB PO SCH (09:56)
[2017-08-27] MEDS: TAMSULOSIN HCL 0.4 MG CAP PO SCH (09:57)
[2017-08-27] MEDS: amLODIPine BESYLATE 5 MG TAB PO SCH (09:57)
[2017-08-27] MEDS: DIAZEPAM 10 MG TAB PO SCH ×3 (09:57→18:20)
[2017-08-27] MEDS: PIPERACIL-TAZO 3.375 GM PREMIX 50 ML IV SCH ×4 (11:18→22:05)
[2017-08-27 12:00] VITALS: BP 145/86; PULSE 85; RESP 16; TEMP 98.1; O2SAT 97
--- NOTE | 2017-08-27 13:20 | HHI.PR ---
Subjective Remarks Patient seen and examined today for follow-up on sepsis secondary to epididymitis. Patient clinically improving. Vital signs are stable, afebrile. Not requiring as much pain medication before. Patient indicates that his pain is improving and edema is improving Objective Vital Signs Date Time Temp Pulse Resp B/P (MAP) Pulse Ox O2 Delivery O2 Flow Rate FiO2 08/27/17 12:00 98.1 85 16 145/86 (105) 97 08/27/17 08:00 97.4 87 16 138/89 (105) 96 08/27/17 00:00 97.0 86 20 131/83 (99) 97 08/26/17 20:41 18 08/26/17 20:00 97.3 90 20 135/84 (101) 98 08/26/17 19:40 97 21 08/26/17 15:50 96.3 87 20 144/93 (110) 97 I/O 08/26/17 08/26/17 08/26/17 08/27/17 08/27/17 08/27/17 07:00 15:00 23:00 07:00 15:00 23:00 Intake Total 4460 ml 1124 ml 3500 ml Output Total 2650 ml 3800 ml 3200 ml Balance 1810 ml -2676 ml 300 ml Intake Oral 960 ml 1124 ml 2000 ml IV Total 3500 ml 1500 ml Output Urine Total 2650 ml 3800 ml 3200 ml # Bowel Movements 0 0 0 Result Diagram: 08/26/17 0515 08/26/17 1435 Objective Remarks GENERAL: Well-developed, well-nourished, in no acute distress. alert and orientated HEENT: Head is normocephalic without any lesions or masses noted. Facial features are symmetric. Eyes: Extraocular muscles are intact. Conjunctivae were clear. NECK: Supple without any masses. Trachea midline no deviation. No JVD, CARDIAC: Regular rhythm, regular rate. S1/S2 are heard. No murmurs gallops or rubs. LUNGS: Clear to auscultation bilaterally. No wheeze, rhonchi or rales. No use of accessory muscles on inspiration or expiration. ABDOMEN: Soft, nontender. Nondistended. Bowel sounds heard in all 4 quadrants. No organomegaly or masses. Negative rebound, negative guarding EXTREMITIES: No edema, pulses are equal bilaterally. No cyanosis or clubbing NEUROLOGY: Mood and affect appear appropriate. Cranial nerves II through XII grossly intact. Moving all extremities, speech is clear SCROTUM: Patient with significant erythema noted over the left testicle. There is significant granulation, with pain on palpation A/P Assessment and Plan Sepsis, resolved Patient presented with febrile illness, leukocytosis, tachycardia, imaging studies indicating possible epididymitis, urinary tract infection, bacteremia Discontinued Rocephin, started vancomycin and Zosyn Patient with staph aureus bacteremia Urine culture is negative for 48 hours Bacteremia Currently on vancomycin and Zosyn Blood cultures 08/23/17 2/4 staph aureus 08/24/17 1/ staph aureus 08/25/17 no growth for 2 days Infectious disease consulted for recommendations Echocardiogram was performed which did not indicate any endocarditis Need to wait at least 1 more day of negative follow-up cultures and ordered to have PICC line placement and arrange outpatient antibiotics Epididymitis, scrotal pain Discontinue Rocephin, Levaquin 500 mg twice daily Urine culture negative for 48 hours GC/chlamydia culture, negative Scrotal elevation and ice Pain control, patient requiring increased amounts of medication Toradol 30 mg IV every 6 hours [place] 7.5 every 6 hours for pain 1-5 [place] 10 every 6 hours for pain 6-10 Dilaudid 2 mg every 4 hours for breakthrough pain Urology consulted who indicated continued [place] for 1 week, started Flomax if patient doesn't improve over the next 48 hours, plan on repeating scrotal ultrasound to rule out abscess 08/25/17 Repeat scrotal ultrasound indicates increased vascularity and induration around the left epididymis. Increased hyperemia. Increased left hemiscrotum edema with small hydrocele which is new. septation noted within the hydrocele which abscess cannot be excluded 08/25/17 Discuss with urology who recommended discontinuing Rocephin and starting vancomycin and Zosyn, discussed with him possible need for surgical intervention, indicated trying antibiotics first Bipolar disorder, anxiety, depression Continue home medications DVT prevention Sequential compression devices Discharge Planning Discharge planning 24-48 hours, likely with outpatient IV antibiotics Mohit Chaves Aug 27, 2017 13:20
--- NOTE | 2017-08-27 13:37 | HHI.PR ---
Addendum to Inpatient Note Additional Information dw Carlos Chaves pt's repeat BC are neg @ 2 days cont oxacillin fu repeat clx Gi Cabrera MD Aug 27, 2017 13:37
[2017-08-27 16:00] VITALS: BP 132/86; PULSE 71; RESP 16; TEMP 97.7; O2SAT 95
[2017-08-27 20:00] VITALS: BP 138/85; PULSE 81; RESP 20; TEMP 98.4; O2SAT 98
[2017-08-27] MEDS ORDERED: PHARMACY ORDERED LAB ONE (20:45)
[2017-08-27 21:14] VITALS: O2SAT 97
[2017-08-28] VITALS: BP 132/77; PULSE 79; RESP 18; TEMP 98.1; O2SAT 98
[2017-08-28] MEDS: SODIUM CHLOR 0.9% 1000 ML INJ 1,000 ML IV SCH ×2 (01:56→14:44)
[2017-08-28] MEDS: PIPERACIL-TAZO 3.375 GM PREMIX 50 ML IV SCH ×3 (02:57→14:45)
[2017-08-28] MEDS: KETOROLAC TROMETHAMINE 30 MG/ML (IVP) VIAL IV PUSH SCH ×2 (05:05→14:44)
[2017-08-28] MEDS: VANCOMYCIN INJ 1,250 MG in SODIUM CHLOR 0.9% 250 ML INJ 250 ML IV SCH ×2 (05:06→14:45)
[2017-08-28 08:00] VITALS: BP 161/97; PULSE 76; RESP 16; TEMP 97; O2SAT 96
[2017-08-28] MEDS: TAMSULOSIN HCL 0.4 MG CAP PO SCH (08:12)
[2017-08-28] MEDS: SODIUM CHLORIDE 0.9% FLUSH 10 ML FLUSH IV FLUSH SCH (08:12)
[2017-08-28] MEDS: ATORVASTATIN 40 MG TAB PO SCH (08:12)
[2017-08-28] MEDS: amLODIPine BESYLATE 5 MG TAB PO SCH (08:12)
[2017-08-28] MEDS: DIAZEPAM 10 MG TAB PO SCH ×2 (08:12→13:19)
[2017-08-28] MEDS: ACETAMINOPHEN/HYDROcodone 325 MG/10 MG TAB PO PRN ×2 (08:13→14:44)
[2017-08-28] MEDS: LINACLOTIDE 145 MCG PO SCH (08:14)
[2017-08-28] MEDS: CLOMIPRAMINE PO SCH (08:14)
[2017-08-28 09:01] VITALS: O2SAT 98
--- NOTE | 2017-08-28 11:48 | HHI.FF ---
Infusion Therapy Location of Infusion Therapy: Home Health Care IV Infusion Order Patient Information Patient Weight 80.9 kg Diagnosis: (1) Bacteremia (2) Sepsis (3) Epididymitis Coded Allergies: No Known Allergies (Verified Allergy, Unknown, 08/13/17) Administer Medication Cefazolin 2 grams IV q 8 hours Start Treatment: Aug 28, 2017 Stop Treatment: Sep 21, 2017 Additional Information Venous access: PICC Line Additional Instructions [x] Peripheral flush and dressing changes per protocol [x] Implanted port and central line o scribe operator: * Implanted port: 10 ml Normal Saline followed by 5 ml Heparin 100 units/ml Heparin flush after each use and monthly to maintain. [] May leave port accessed during therapy. [] May leave peripheral site accessed for duration of therapy. [x] If patient has SOB or respiratory distress, check oxygen saturation. If less than 90% or clinical signs of respiratory distress, administer oxygen at 2 L/min. via nasal cannula and notify physician. [x] Anaphylaxis/Reaction orders: * Stop infusion. * Keep IV line open with saline flush. * Notify physician. * Monitor vital signs every 15 minutes until symptoms resolve. * Check Oxygen saturation; Oxygen at 2 L/min. via nasal cannula if less than 90% or clinical signs of respiratory distress. * Administer diphenhydramine (Benadryl) 25 mg IV STAT, (unless patient has received as pre-med). May repeat once, if necessary. * Solu-Cortef 250 mg IVP over 30-60 seconds, use 100 mg vials for each dissolution. * Epinephrine (1mg/1 ml) 0.3 mg subcutaneously or IVP now with any signs of respiratory distress. * Check with physician for new additional pre-med orders if patient is re- challenged or re-treated. [x] May remove PICC line when treatment complete, after confirming with Physician. [x] If the patient is admitted to the hospital, the ED, or transferred via [facility] , complete transfer form including medication reconciliation order sheet. Laboratory Tests Weekly Labs: CBC w/diff, CMP, Serum CK Levels Additional Information Repeat blood cultures 2 weeks after completion of antibiotics Mohit Chaves Aug 28, 2017 11:48
--- NOTE | 2017-08-28 11:49 | HHI.FF ---
Face to Face Verification Diagnosis: (1) Sepsis (2) Epididymitis (3) Bacteremia Home Health Nursing Order: Medical education Signs/symptoms of disease process Nursing assessment with vital signs IV medication administration I have seen patient Antwon Dutton on 08/28/17. My clinical findings support the need for the requested home health care services because: Injectable med education/admin I certify that my clinical findings support that this patient is homebound because: Unable to use public transportation Mohit Chaves Aug 28, 2017 11:49
[2017-08-28] MEDS ORDERED: TAMS5CAP PO (11:53)
[2017-08-28] MEDS ORDERED: HYDR-3580 PO (11:53)
[2017-08-28 12:00] VITALS: BP 141/84; PULSE 89; RESP 16; TEMP 96.7; O2SAT 97
--- NOTE | 2017-08-28 13:03 | HHI.DS ---
Discharge Summary Admission Date Aug 23, 2017 at 12:22 Discharge Date: Aug 28, 2017 Admitting Diagnosis UTI, EPIDIDYMITIS (1) Sepsis ICD Code: A41.9 - Sepsis, unspecified organism (2) Epididymitis ICD Code: N45.1 - Epididymitis Status: Acute (3) Bacteremia ICD Code: R78.81 - Bacteremia Procedures None Brief History - From Admission Written by Heydi Anthony, acting as scribe for Dr. Garcia on 08/23/17 at 15:04. Mr. Dutton is a 47-year-old male patient with a known medical history of hypertension, depression, Jaiden's disease and chronic urination problems who presented to the ED with complaints of left sided flank pain and left testicular pain and swelling. Patient states that last evening he suddenly noticed his left testicle swollen and reports subjective fever, chills and severe left flank pain. Patient did present to the hospital on 08/14/2017 for urinary retention and at the time needed to be straight catheterized. Patient states since that time he has been voiding normally with no issues up until last evening. Does admit to dysuria. He also has underwent a TURP in the past and was following with Dr. Keita but has not seen him for over a year. Denies any recent chest pain, headache, sore throat, shortness of breath, nausea, vomiting, diarrhea. CBC/BMP: 08/26/17 0515 08/26/17 1435 Significant Findings Laboratory Tests Test 08/26/17 05:15 08/26/17 14:35 08/27/17 20:45 Red Blood Count 3.80 MIL/MM3 (4.50-5.90) Hemoglobin 11.8 GM/DL (13.0-17.0) Hematocrit 34.2 % (39.0-51.0) Neutrophils (%) (Auto) 83.0 % (16.0-70.0) Lymphocytes (%) (Auto) 6.7 % (9.0-44.0) Lymphocytes # (Auto) 0.6 TH/MM3 (1.0-4.8) Vancomycin Level Trough 10.4 MCG/ML (5.0-10.0) 19.9 MCG/ML (5.0-10.0) Imaging Last Impressions Scrotum Ultrasound 08/25/17 0000 Signed Impressions: Service Date/Time: Friday, August 25, 2017 09:31 - CONCLUSION: Determination there is left testicle decreasing hyperemia and septation hydrocele. Abscess cannot be excluded within this hydrocele. I don't see testicular abscess. Luc Fraga MD FACR Hospital Course 47 year-old male who originally presented to hospital because of left flank pain and left testicular pain and swelling. Patient had workup performed which indicated left epididymitis. Patient was with significant leukocytosis, tachycardia, signs of infection and was originally admitted with sepsis. Patient was started on empirical antibiotics of Rocephin for the epididymitis and subtotally started on Levaquin. Patient developed positive blood cultures with staph aureus on 08/24/17. Follow-up cultures were performed which also became positive on 08/25/17. Patient's antibiotics were changed to vancomycin and Zosyn. Repeat scrotal ultrasound was performed which did indicate worsening edema, induration, cyst which was septated which abscess cannot be ruled out. Urologist has been following the patient during the stay in the hospital and recommended continuation of antibiotics, no surgical intervention was necessary. Infectious disease was consulted and repeat cultures were performed. Repeat blood cultures have remained negative. Had to wait 3 days and noted to have PICC line placed in order to arrange outpatient antibiotics. Is recommended by infectious disease the patient be placed on Ancef 2 g every 8 hours for total of 4 weeks. Case management was consulted to arrange outpatient IV antibiotics. Patient is clinically stable. He has not had any fevers since 08/24/17, vital signs are stable. Repeat cultures have remained negative. Testicular pain and swelling has significantly improved. Patient will discharge with outpatient follow-up with his primary medical doctor, urologist. Will keep Kuhn in place until seen by urologist in one week. Open discharge with home health once arrangements made Pt Condition on Discharge: Stable Discharge Disposition: Disch w/ Home Health Serv Discharge Time: > 30 minutes Discharge Instructions DIET: Follow Instructions for: As Tolerated, No Restrictions Activities you can perform: Regular-No Restrictions Activities to Avoid: Driving for 24 hrs Follow up Referrals: PCP Follow-up - 1 Week Urology - 1 Week with Chase Keita MD New Medications: Hydrocodone/Acetaminophen (Hydrocodone-Acetamin 7.5-325) 7.5 Mg-325 Mg Tablet 1 TAB PO Q6HR PRN for Pain, #20 TAB Tamsulosin (Flomax) 0.4 Mg Cap 0.4 MG PO DAILY for urinary retention for 30 Days, #30 CAP Continued Medications: Amlodipine-Atorvastatin (Amlodipine-Atorvastatin) 5-40 Mg Tab 1 TAB PO DAILY for Blood Pressure Management, #30 TAB 0 Refills Clomipramine (Clomipramine) 50 Mg Cap 200 MG PO DAILY for OCD, CAP 0 Refills Diazepam (Diazepam) 10 Mg Tab 10 MG PO TID, TAB 0 Refills Ibuprofen (Ibuprofen) 600 Mg Tab 600 MG PO Q6H PRN for Pain/Inflammation, #40 TAB 0 Refills Linaclotide (Linzess) 145 Mcg Cap 145 MCG PO DAILY, CAP 0 Refills Quetiapine (Seroquel) 200 Mg Tab 200 MG PO DAILY, #60 TAB 0 Refills Trazodone (Trazodone) 300 Mg Tab 300 MG PO HS for Control Depression, #30 TAB 0 Refills Mohit Chaves Aug 28, 2017 13:03
[2017-08-31] MEDS ORDERED: PHARMACY ORDERED LAB ONE (04:45)
== END 2017-08-28 16:39 | disposition home health service (06) | DRG 872 ==
LOC: PHED 09:35 → PHEDA 12:22 → PH3B 14:19
PROVIDERS: ADMIT Hospitalist; ATTEND Hospitalist
DX: A41.01 Sepsis due to Methicillin susceptible Staphylococcus aureus (principal); G10 Huntington's disease; N39.0 Urinary tract infection, site not specified; I10 Essential (primary) hypertension; N45.1 Epididymitis; N43.3 Hydrocele, unspecified; F17.210 Nicotine dependence, cigarettes, uncomplicated; F31.9 Bipolar disorder, unspecified; F41.9 Anxiety disorder, unspecified; Z23 Encounter for immunization
CPT/HCPCS: 36569; 76870; 76937; 80048; 80053; 80202; 81001; 82565; 82948; 83605; 83735; 85025; 86403; 87040; 87086; 87186; 87205; 87491; 87591; 90471; 90686; 93308; 93975; 96365; 96367; 96375; G0008; J0696; J1170; J1885; J2405; J2543; J3370; J7030; J7050; Q2038